=== PATIENT | male | born 1980 | race Caucasian/White ===

== ENCOUNTER 2021-07-11 18:33 | Emergency (ER) | payer OTHER ==
[2021-07-11 18:39] VITALS: BP 143/78; PULSE 73; TEMP 99.2; BMI 30.7
[2021-07-11] MEDS ORDERED: MECLIZINE HCL 25 MG TABLET (FP) PO ONE (20:57)
[2021-07-11] MEDS ORDERED: IBUPROFEN 600 MG TABLET (FP) PO ONE ×2 (20:57→21:03)
[2021-07-11] MEDS ORDERED: MECLIZINE HCL 25 MG TABLET (FP) ONE ×2 (21:03→21:23)
== END 2021-07-11 22:58 | disposition home or self-care (01) ==
LOC: JER 18:33
DX: F07.81 Postconcussional syndrome (principal)
CPT/HCPCS: 70450-TC; 99284-25

== ENCOUNTER 2022-09-07 08:41 | Emergency (ER) | payer OTHER ==
[2022-09-07 11:56] LABS: BASO % 0.6 % (0-2.0); EOS % 1.9 % (0-4.5); HEMATOCRIT 43.7 % (35.4-49); HEMOGLOBIN 14.8 GM/dL (11.7-16.9); LYMPH % 39.5 % (8-40); MCH 31.8 pg (25.7-33.7); MCHC 33.9 g/dl (32.0-35.9); MEAN CELL VOLUME 93.9 fl (80-96); MEAN PLT VOLUME 9.4 fl (7.5-11.1); MONO % 6.6 % (3.8-10.2); NEUT % 51.4 % (42.8-82.8); PLATELET COUNT 220 10^3/uL (134-434); RBC 4.65 M/mm3 (4.00-5.60); RDW 13.1 % (11.9-15.9); WHITE BLOOD COUNT 6.5 K/mm3 (4.0-10.0)
[2022-09-07 12:03] LABS: CALCIUM 9.1 mg/dL (8.5-10.1)
[2022-09-07 12:04] LABS: BLOOD UREA NITROGEN 13.7 mg/dL (7-18)
[2022-09-07 12:07] LABS: CREATININE 0.8 mg/dL (0.55-1.3)
[2022-09-07 12:09] LABS: BILIRUBIN,TOTAL 0.4 mg/dL (0.2-1); TOT PROT 8.2 g/dl (6.4-8.2)
[2022-09-07 13:24] LABS: ERYTHROCYTE SEDIMENTATION RATE 9 mm/hr (0-10)
[2022-09-07 14:26] VITALS: BP 132/68; PULSE 64; RESP 16; TEMP 98
== END 2022-09-07 14:10 | disposition home or self-care (01) ==
LOC: JER 08:41
DX: G62.9 Polyneuropathy, unspecified (principal)
CPT/HCPCS: 36415; 70450-TC; 80053; 82550; 82553; 84443; 85025; 85651; 86140; 93005; 93010; 99285-25